=== PATIENT | male | born 1985 | race Caucasian/White ===

== ENCOUNTER 2017-10-07 09:56 | Emergency (ER) | payer MEDICAID ==
[~2017-10-07] VITALS: Ht 180.3 cm; Wt 133.8 kg
[2017-10-07 11:08] LABS: BASOPHIL % 0.2 % (0-2); CALCIUM 9.3 mg/dL (8.5-10.1); CARBON DIOXIDE 30.3 mmol/L (21-32); CHLORIDE SERUM 105 mmol/L (98-107); CREATININE SERUM 0.9 mg/dL (0.7-1.3); GFR1 > 60 mL/min; GLUCOSE SERUM 137 mg/dL (74-106); PLATELET COUNT 320 x10^3mcL (130-400); POTASSIUM SERUM 4.3 mmol/L (3.5-5.1); RED CELL DISTRIBUTION WIDTH 12.8 % (11.5-14.5); SODIUM SERUM 142 mmol/L (136-145)
[2017-10-07 11:14] LABS: ALBUMIN 4.1 g/dL (3.4-5.0); ALKALINE PHOSPHATASE 74 U/L (46-116); ALT/SGPT 49 U/L (16-63); AST/SGOT 28 U/L (15-37); BILIRUBIN TOTAL 0.38 mg/dL (0.20-1.00)
[2017-10-07 11:15] LABS: TOTAL PROTEIN, SERUM 8.5 g/dL (6.4-8.2)
[2017-10-07 12:40] VITALS: BP 123/76
== END 2017-10-07 12:40 | disposition home or self-care (01) ==
LOC: ED 09:56
PROVIDERS: Emergency Medicine
DX: H81.10 Benign paroxysmal vertigo, unspecified ear (principal)
CPT/HCPCS: J1200; J2405; J7030